=== PATIENT | female | born 1995 | race Asian ===

== ENCOUNTER 2019-03-04 16:32 | Emergency (ER) | payer OTHER ==
[~2019-03-04] VITALS: Ht 154.9 cm; Wt 62.6 kg
[~2019-03-04 16:32] MED LIST: NKM
[2019-03-04 17:00] VITALS: BP 115/56
--- NOTE | 2019-03-04 17:00 | NUR ---
ED Nurse Note: Pt is AAOx4, vss With no signs of acute distress. Pt came in due to possible spider bite on right calf since 2 days ago.
--- NOTE | 2019-03-04 17:21 | Emergency Room Report ---
History of Present Illness General Chief Complaint: Skin Rash/Abscess Source: Patient Present Illness HPI 23 YO Female presents to the ED c/o 01/08 in severity pain, swelling, and erythema of right calf x 2 days. Pt. reports pimple which has significantly progressed in size. pt. denies itching. She reports pain exacerbated with palpation and walking. Pt. reports "tightness" in the affected calf. pt. UTD with vaccinations. Pt. denies fevers, chills or swollen tender lymph nodes. Denies lesions/rashes elsewhere on the body. Denies new medications or body washes or creams. Denies swelling of the lips, tongue , throat or airway. Denies wheezing, or shortness of breath. Denies recent travel, recent illness or ill contacts. denies blisters, oral lesions, or sloughing of the skin. Allergies: Coded Allergies: No Known Allergies (Unverified , 10/26/15) Patient History Past Medical History: see triage record Past Surgical History: none Pertinent Family History: none Last Menstrual Period: 02/02/2019 Now: No Immunizations: UTD Reviewed Nursing Documentation: PMH: Agreed; PSxH: Agreed Nursing Documentation-PMH Past Medical History: No History, Except For Review of Systems All Other Systems: negative except mentioned in HPI Physical Exam Vital Signs Date Time Temp Pulse Resp B/P (MAP) Pulse Ox O2 Delivery O2 Flow Rate FiO2 03/04/19 16:49 98.6 82 20 115/56 (75) 97 Room Air Sp02 EP Interpretation: reviewed, normal General Appearance: no apparent distress, alert, GCS 15, non-toxic Head: normocephalic, atraumatic Eyes: bilateral eye normal inspection, bilateral eye PERRL ENT: hearing grossly normal, normal voice Neck: full range of motion Respiratory: lungs clear, normal breath sounds, speaking full sentences Cardiovascular #1: regular rate, rhythm Musculoskeletal: gait/station normal, normal range of motion, non-tender Neurologic: alert, oriented x3, responsive, motor strength/tone normal, sensory intact, normal gait, speech normal, grossly normal Psychiatric: judgement/insight normal Skin: other - large 0.5cm pustule with some surrounding erythema of the lateral right calf. NO blisters or vessicles. Lymphatic: no adenopathy Procedures Incision and Drainage Incision and Drainage : Consent: Verbal Site: right lateral calf Blade Size: 25g needle I & D Procedure: betadine prep, sterile drapes applied, sterile dressing applied Wound Location: lower extremity - lateral right calf Wound's Depth, Shape: superficial Wound Length (cm): 0 Wound Explored: contaminated - purulent d/c was aspirated and drained on its own afterward Anesthesia: 1% Lidocaine Volume Anesthetic (ccs): 0 Splint Applied?: No Sling Applied?: No Patient Tolerated: Well Complications: None Progress needle aspiration using 25g needle. Medical Decision Making PA Attestation Dr. Myers is my supervising Physician whom patient management has been discussed with. Diagnostic Impression: Primary Impression: Abscess ER Course 23 YO Female presents to the ED c/o 01/08 in severity pain, swelling, and erythema of right calf x 2 days. Pt. reports pimple which has significantly progressed in size. pt. denies itching. She reports pain exacerbated with palpation and walking. Pt. reports "tightness" in the affected calf. pt. UTD with vaccinations. Pt. denies fevers, chills or swollen tender lymph nodes. Denies lesions/rashes elsewhere on the body. Denies new medications or body washes or creams. Denies swelling of the lips, tongue , throat or airway. Denies wheezing, or shortness of breath. Denies recent travel, recent illness or ill contacts. denies blisters, oral lesions, or sloughing of the skin. Ddx considered but are not limited to cellulitis, abscess, cystic acne, necrotizing fasciitis, insect bite. Vital signs: are WNL, pt. is afebrile H&PE are most consistent with large 0.5cm pustule with some surrounding erythema of the lateral right calf. ORDERS: none required at this time, the diagnosis is clinical ED INTERVENTIONS: -I & D -- Needle aspiration DISCHARGE: At this time pt. is stable for d/c to home. Will provide printed patient care instructions, and any necessary prescriptions. Care plan and follow up instructions have been discussed with the patient prior to discharge. Last Vital Signs Date Time Temp Pulse Resp B/P (MAP) Pulse Ox O2 Delivery O2 Flow Rate FiO2 03/04/19 16:49 98.6 82 20 115/56 (75) 97 Room Air Disposition: HOME, SELF-CARE Condition: Stable Scripts Trimethoprim/Sulfamethoxazole 160/800* (BACTRIM DS TABLET*) 1 Each Tablet 1 TAB ORAL TWICE A DAY for 7 Days, #14 TAB Prov: Prachi Castillo 03/04/19 Mupirocin* (MUPIROCIN*) 22 Gm Oint...g. 1 APPLIC TOPIC THREE TIMES A DAY, #22 GM Prov: Prachi Castillo 03/04/19 Patient Instructions: Abscess Additional Instructions: Take medications as directed. Follow up with a Primary Care Provider in 3-5 days, even if your symptoms have resolved. --Please review list of primary care clinics, if you do not already have a primary care provider Return sooner to ED if new symptoms occur, or current symptoms become worse. - Please note that this Emergency Department Report was dictated using [employer] publisher technology software, occasionally this can lead to erroneous entry secondary to interpretation by the dictation equipment. Prachi Castillo Mar 04, 2019 17:21
[2019-03-04] MEDS ORDERED: BACTRIM DS TAB1 EAC1 ORAL (17:22)
[2019-03-04] MEDS ORDERED: MUPIROCIN22 GM TOPIC (17:22)
[2019-03-04 17:38] VITALS: BP 115/56
--- NOTE | 2019-03-04 17:38 | NUR ---
ER DISCHARGE NOTE: Patient is cleared to be discharged per ERMD, pt is aox4, on room air, with stable vital signs. pt was given dc and prescription instructions, pt was able to verbalize understanding, pt id band and iv site removed without complications. pt is able to ambulate with steady gait. pt took all belongings. pt left with family.
== END 2019-03-04 17:38 | disposition home or self-care (01) ==
LOC: EMR 17:00
DX: L02.415 Cutaneous abscess of right lower limb (principal)
CPT/HCPCS: 10060; 99282